=== PATIENT | male | born 1995 | race Caucasian/White ===

== ENCOUNTER 2016-08-07 16:39 | Emergency (ER) | payer MEDICAID ==
[2016-08-07 16:50] VITALS: BP 127/76
[2016-08-07] MEDS ORDERED: BUFFERED LIDOCAINE 10 ML SYRINGE ONE (16:50)
[2016-08-07] MEDS ORDERED: AMOX/CLAV 875 MG/125 MG TABLET PO STA (17:02)
[2016-08-07] MEDS ORDERED: HYDROcod/ACETAM 5/325 MG TABLET PO STA (17:02)
[2016-08-07] MEDS ORDERED: HYDROcod/ACETAM 5/325 MG TABLET ONE (17:04)
[2016-08-07] MEDS ORDERED: AMOX/CLAV 875 MG/125 MG TABLET PO ONE (17:04)
--- NOTE | 2016-08-07 17:05 | ED Physician Documentation ---
PD HPI SKIN - Stated complaint Stated Complaint: BUTTOCK SORE - Chief complaint Chief Complaint: Wound - History obtained from History obtained from: Patient - History of Present Illness Timing - onset: Other (He has a pilonidal cyst, it has been hurting for the last 2 days. He's had it incised and drained once before, 2 years ago. No fevers.) Review of Systems Constitutional: denies: Fever, Chills Throat: reports: Reviewed and negative Cardiac: reports: Reviewed and negative Respiratory: reports: Reviewed and negative PD PAST MEDICAL HISTORY - Past Medical History Past Medical History: Yes Other Past Medical History: meningitis - Past Surgical History Past Surgical History: No - Present Medications Home Medications: Ambulatory Orders Medication Instructions Recorded Confirmed Amox/Clav 875/125 [Augmentin] 1 each PO Q12H #14 tablet 08/07/16 HYDROcod/ACETAM 5/325 [[place] 5/325] 1 - 2 ea PO Q6H PRN #10 tablet 08/07/16 - Allergies Allergies/Adverse Reactions: Allergies Allergy/AdvReac Type Severity Reaction Status Date / Time No Known Drug Allergies Allergy Verified 08/07/16 16:45 - Social History Does the pt smoke?: Yes Smoking Status: Current every day smoker Does the pt drink ETOH?: No Does the pt have substance abuse?: No - Immunizations Immunizations are current?: Yes PD ED PE NORMAL - Vitals Vital signs reviewed: Yes - General General: Alert and oriented X 3, No acute distress - Extremities Extremities: Other (2 cm pilonidal cyst at the top left gluteal cleft) - Neuro Neuro: Alert and oriented X 3, Normal speech - Psych Psych: Normal mood, Normal affect Results - Vitals Vitals: Vital Signs - 24 hr 08/07/16 16:43 Temperature 37.0 C Heart Rate 96 Respiratory 18 Rate Blood Pressure 127/76 O2 Saturation 99 Oxygen O2 Source Room air Procedures - Abscess I&D (location) pilonidal Preparation: Chlorhexadine, Lidocaine 1% (With bicarbonate) Incision: Incised with scalpel, Purulent drainage, Loculations broken, Packed. No: Culture obtained Other: Pt tolerated well, Antibiotic prescribed Departure - Departure Disposition: 01 Home, Self Care Clinical Impression: Pilonidal cyst with abscess Condition: Good Record reviewed to determine appropriate education?: Yes Instructions: ED Cyst Pilonidal Infected IandD Follow-Up: PATRICIA MALONEY MD [Provider Admit Priv/Credential] - Prescriptions: Amox/Clav 875/125 [Augmentin] 1 each PO Q12H #14 tablet HYDROcod/ACETAM 5/325 [[place] 5/325] 1 - 2 ea PO Q6H PRN #10 tablet PRN Reason: Pain Comments: Follow up with the surgeon as discussed for definitive treatment. Return in 2 days for packing removal. Do not drink or drive while on narcotic pain medicine. Note that many narcotic pain relievers also contain tylenol/acetaminophen. Please ensure that your total dose of acetaminophen from all sources does not exceed 3 grams (3000mg) per day. You may constipated on this medication, take a stool softener such as "Colace" twice a day while you are on it. Also recommend a [id number] laxative such as senna or MiraLAX any day that you do not have a bowel movement. If you received narcotic pain medication in the emergency department, do not drive or operate machinery for the next 24 hours.
== END 2016-08-07 17:10 | disposition home or self-care (01) ==
LOC: ED 16:39
DX: L05.01 Pilonidal cyst with abscess (principal); Z86.61 Personal history of infections of the central nervous system; F17.200 Nicotine dependence, unspecified, uncomplicated
CPT/HCPCS: 10080; 99283; A9270